=== PATIENT | male | born 1975 | race Native Hawaiian/Other Pacific Islander ===

== ENCOUNTER 2018-01-02 01:15 | Emergency (ER) | payer MEDICAID ==
[2018-01-02 01:31] VITALS: RESP 18
[2018-01-02] MEDS ORDERED: Tdap Vaccine 0.5 ml Vial (10-64 yrs) IM ONE ×2 (03:35→03:43)
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
[2018-01-02 05:37] VITALS: BP 115/86; PULSE 88; TEMP 98.5; O2SAT 98
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
== END 2018-01-02 05:23 | disposition home or self-care (01) ==
LOC: H.ER 01:15
DX: S09.90XA Unspecified injury of head, initial encounter (principal); Y04.0XXA Assault by unarmed brawl or fight, initial encounter; Y92.89 Other specified places as the place of occurrence of the external cause